=== PATIENT | male | born 1950 | race Caucasian/White ===

== ENCOUNTER 2018-11-30 15:55 | Outpatient (CLI) | payer BC ==
--- NOTE | 2018-11-30 17:36 | MRI ---
MRI LUMBAR SPINE NONCONTRAST: 11/30/18 HISTORY: Low back pain with bilateral leg radiculopathy. FINDINGS: The conus medullaris has a normal appearance. There is desiccation of all the intervertebral discs. V ertebral body heights are maintained. T12-L1, L1-2: Minimal disc bulges. Central canal and neural foramina are patent. L2-3: Disc space narrowing. Minimal degenerative spondylolisthesis. Posterior disc bulge and circumfe rential degenerative changes. Moderate to severe stenosis of the central canal. Moderate right and mo derate to severe left foraminal stenoses. L3-4: Disc space narrowing. Minimal degenerative spondylolisthesis. Posterior disc bulge and circumfe rential degenerative changes. Severe stenosis of the central canal and each neural foramen. Increased T2 signal and diminished T1 signal within each pedicle and facet at the L3 level. L4-5: Disc space narrowing. Grade I spondylolisthesis. No significant disc bulge, possibly surgically absent. Thecal sac is patent. Degenerative changes with mild stenosis of each neural foramen. There is increased T2 signal and diminished T1 signal within each pedicle and facet. L5-S1: Mild posterior disc bulge with slight effacement of the ventral aspect of the thecal sac and r ight S1 nerve root. Degenerative changes with severe right and moderate left foraminal stenoses. IMPRESSION: Severe multilevel degenerative changes throughout the lumbar spine as detailed above. Central anal an d foraminal stenoses most pronounced at the L3-4 level and at the right neural foramen of the lumbosa cral junction. Stress reaction of each pedicle and facet at the L3 and L4 levels. POS: [facility]
== END 2018-11-30 15:56 | disposition home or self-care (01) ==
LOC: SCSMRI 15:55
DX: M43.16 Spondylolisthesis, lumbar region (principal); M47.816 Spondylosis without myelopathy or radiculopathy, lumbar region; M48.061 Spinal stenosis, lumbar region without neurogenic claudication
CPT/HCPCS: 72148

== ENCOUNTER 2023-06-15 09:15 | Outpatient (CLI) | payer BC | END 2023-06-15 09:16 | disposition home or self-care (01) | LOC: NM 09:15 | PROVIDERS: ATTEND Orthopaedic Surgery | DX: M25.461 Effusion, right knee (principal) | CPT/HCPCS: 78315; A9503 ==